=== PATIENT | female | born 1950 | race Caucasian/White ===

== ENCOUNTER → 2020-08-05 | Outpatient (CLI) | payer MEDICARE, BC ==
[~2020-08-05] MED LIST: CALC500T54 PO; LEVO112T4 PO; MAGN250T10 PO; SERT100T PO; TRAM50TA PO
== END ==
LOC: LAB 14:14
PROVIDERS: ATTEND Nurse Anesthetist, Certified Registered
DX: Z01.812 Encounter for preprocedural laboratory examination (principal); Z20.828 Contact with and (suspected) exposure to other viral communicable diseases; Z87.19 Personal history of other diseases of the digestive system
CPT/HCPCS: U0003

== ENCOUNTER → 2021-01-31 | Outpatient (CLI) | payer MEDICARE, BC | LOC: LAB 13:13 | PROVIDERS: ATTEND Optometrist | DX: Z01.812 Encounter for preprocedural laboratory examination (principal); N60.02 Solitary cyst of left breast; Z85.3 Personal history of malignant neoplasm of breast; Z20.822 Contact with and (suspected) exposure to COVID-19 | CPT/HCPCS: U0003 ==